=== PATIENT | female | born 1955 | race Caucasian/White ===

== ENCOUNTER 2017-09-27 20:45 | Emergency (ER) | payer OTHER ==
[~2017-09-27] VITALS: Ht 165.1 cm; Wt 77.1 kg
== END 2017-09-27 22:44 | disposition home or self-care (01) ==
LOC: ER 20:45
DX: N39.0 Urinary tract infection, site not specified (principal); R33.8 Other retention of urine

== ENCOUNTER 2017-10-12 14:01 | Outpatient (CLI) | payer OTHER | END 2017-10-12 14:13 | disposition home or self-care (01) | LOC: TOM 14:01 | DX: R33.8 Other retention of urine (principal) ==